=== PATIENT | male | born 1950 | race Caucasian/White ===

== ENCOUNTER 2018-06-23 13:17 | Emergency (ER) | payer OTHER ==
[~2018-06-23] VITALS: Ht 187.9 cm; Wt 113.4 kg
[2018-06-23] MEDS ORDERED: CYCLOBENZAPRINE5 M3 PO ×2 (14:01→15:16)
[2018-06-23] MEDS ORDERED: MEDROL DOSEPAK4 MG PO ×2 (14:01→15:16)
[2018-06-23] MEDS ORDERED: MIRALAX POWDER17 G1 PO (15:16)
== END 2018-06-23 15:18 | disposition home or self-care (01) ==
LOC: ED 13:17
DX: M48.07 Spinal stenosis, lumbosacral region (principal); K59.00 Constipation, unspecified

== ENCOUNTER → 2024-04-29 | Outpatient (CLI) | payer OTHER ==
[~2024-04-29] MED LIST: CYCLOBENZAPRINE5 M3 PO; MEDROL DOSEPAK4 MG PO; MIRALAX POWDER17 G1 PO
== END | disposition home or self-care (01) ==
LOC: US 07:31
PROVIDERS: ATTEND Nurse Practitioner Family
DX: I71.40 Abdominal aortic aneurysm, without rupture, unspecified (principal); Z87.891 Personal history of nicotine dependence; I10 Essential (primary) hypertension